=== PATIENT | female | born 1965 | race Caucasian/White ===

== ENCOUNTER 2019-02-27 14:46 | Emergency (ER) | payer MEDICAID ==
[~2019-02-27] VITALS: Ht 165.1 cm; Wt 94.3 kg
[2019-02-27 14:58] VITALS: Ht 165.1 cm; Wt 94.3 kg
[2019-02-27 17:23] LABS: microscopic required? NO
[2019-02-27 17:30] LABS: urine erythrocyte NEGATIVE (NEGATIVE)
[2019-02-27 17:36] LABS: CALCIUM 9.1 mg/dL (8.5-10.1); CARBON DIOXIDE 31.8 mmol/L (21-32); CHLORIDE SERUM 104 mmol/L (98-107); CREATININE SERUM 0.7 mg/dL (0.6-1.0); GFR1 > 60 mL/min; GLUCOSE SERUM 139 mg/dL (74-106); POTASSIUM SERUM 3.7 mmol/L (3.5-5.1); SODIUM SERUM 142 mmol/L (136-145)
[2019-02-27 17:40] LABS: BASOPHIL % 0.5 % (0-2); PLATELET COUNT 217 x10^3mcL (130-400)
[2019-02-27 17:42] LABS: ALBUMIN 3.9 g/dL (3.4-5.0); ALKALINE PHOSPHATASE 121 U/L (46-116); ALT/SGPT 34 U/L (14-59); AST/SGOT 12 U/L (15-37); BILIRUBIN TOTAL 0.4 mg/dL (0.20-1.00); TOTAL PROTEIN, SERUM 7.6 g/dL (6.4-8.2)
[2019-02-27 19:02] VITALS: BP 155/60
== END 2019-02-27 19:10 | disposition home or self-care (01) ==
LOC: ED 14:46
PROVIDERS: Emergency Medicine
DX: R42 Dizziness and giddiness (principal); R53.1 Weakness; R11.0 Nausea; R25.1 Tremor, unspecified; I10 Essential (primary) hypertension; E11.9 Type 2 diabetes mellitus without complications
CPT/HCPCS: 82962; J7030; J8597; Q0092